=== PATIENT | female | born 1955 | race Native Hawaiian/Other Pacific Islander ===

== ENCOUNTER 2018-08-30 10:13 | Outpatient (CLI) | payer OTHER | END 2018-08-30 22:48 | disposition home or self-care (01) | LOC: RAD 10:13 | DX: M54.12 Radiculopathy, cervical region (principal) ==

== ENCOUNTER 2020-02-15 16:18 | Outpatient (CLI) | payer OTHER | END 2020-02-15 20:08 | disposition home or self-care (01) | LOC: RAD 16:18 | DX: M79.644 Pain in right finger(s) (principal) ==

== ENCOUNTER 2020-09-28 08:22 | Outpatient (CLI) | payer OTHER | END 2020-09-28 19:00 | disposition home or self-care (01) | LOC: CT 08:22 | PROVIDERS: ATTEND Nurse Practitioner | DX: R91.1 Solitary pulmonary nodule (principal); Z13.820 Encounter for screening for osteoporosis; N95.8 Other specified menopausal and perimenopausal disorders | CPT/HCPCS: 36415; 82565; 84520; Q9963 ==

== ENCOUNTER 2020-12-12 11:47 | Day surgery (SDC) | payer OTHER ==
[2020-12-04 15:00] LABS: PLATELET COUNT 313 K/uL (152-353)
== END 2020-12-12 15:26 | disposition home or self-care (01) ==
LOC: OR 11:47
PROVIDERS: ATTEND Internal Medicine Gastroenterology
PROC: 0DBH8ZZ Excision of Cecum, Via Natural or Artificial Opening Endoscopic (ICD-10-PCS; principal; 2020-12-12)
PROC: 0DBL8ZZ Excision of Transverse Colon, Via Natural or Artificial Opening Endoscopic (ICD-10-PCS; 2020-12-12)
PROC: 0DBN8ZZ Excision of Sigmoid Colon, Via Natural or Artificial Opening Endoscopic (ICD-10-PCS; 2020-12-12)
DX: K63.5 Polyp of colon (principal); D12.3 Benign neoplasm of transverse colon; D12.0 Benign neoplasm of cecum; K64.8 Other hemorrhoids; Z86.010 Personal history of colon polyps; Z20.828 Contact with and (suspected) exposure to other viral communicable diseases
CPT/HCPCS: 80053; 85027; 87635; J2704; J7120; U0003

== ENCOUNTER 2021-01-02 10:22 | Day surgery (SDC) | payer OTHER | END 2021-01-02 12:42 | disposition home or self-care (01) | LOC: OR 10:22 | PROVIDERS: ATTEND Internal Medicine Gastroenterology | PROC: 0DB68ZZ Excision of Stomach, Via Natural or Artificial Opening Endoscopic (ICD-10-PCS; principal; 2021-01-02) | PROC: 0D738ZZ Dilation of Lower Esophagus, Via Natural or Artificial Opening Endoscopic (ICD-10-PCS; 2021-01-02) | DX: K22.2 Esophageal obstruction (principal); K21.00 Gastro-esophageal reflux disease with esophagitis, without bleeding; K29.50 Unspecified chronic gastritis without bleeding; R13.19 Other dysphagia; R10.13 Epigastric pain; Z20.822 Contact with and (suspected) exposure to COVID-19 | CPT/HCPCS: 87635; J2704; U0003 ==

== ENCOUNTER 2021-11-18 08:05 | Outpatient (CLI) | payer OTHER | END 2021-11-18 18:46 | disposition home or self-care (01) | LOC: CT 08:05 | PROVIDERS: ATTEND Psychiatry & Neurology Neurology | DX: R93.89 Abnormal findings on diagnostic imaging of other specified body structures (principal) ==

== ENCOUNTER 2022-09-10 08:55 | Outpatient (CLI) | payer OTHER | END 2022-09-10 20:13 | disposition home or self-care (01) | LOC: US 08:55 | PROVIDERS: ATTEND Nurse Practitioner | DX: R10.11 Right upper quadrant pain (principal) ==

== ENCOUNTER 2022-09-26 08:32 | Outpatient (CLI) | payer OTHER | END 2022-09-26 19:51 | disposition home or self-care (01) | LOC: MAMMO 08:32 | PROVIDERS: ATTEND Nurse Practitioner | DX: Z00.00 Encounter for general adult medical examination without abnormal findings (principal); Z12.31 Encounter for screening mammogram for malignant neoplasm of breast ==